=== PATIENT | female | born 1955 | race Caucasian/White ===

== ENCOUNTER 2023-11-29 09:50 | Day surgery (SDC) | payer OTHER ==
[2023-11-29] MEDS: Zoledronic Acid/Mannitol/Water 5 MG/100 ML INFUS.BOT IV SCH (10:21)
[2023-11-29 12:30] VITALS: BP 120/79; TEMP 97.5; O2SAT 100; BMI 19.5
== END 2023-11-29 11:05 | disposition home or self-care (01) ==
LOC: DS 09:50
PROVIDERS: ATTEND Internal Medicine
DX: M81.0 Age-related osteoporosis without current pathological fracture (principal); R13.10 Dysphagia, unspecified
CPT/HCPCS: 96365; J3489